=== PATIENT | female | born 1995 | race Caucasian/White ===

== ENCOUNTER → 2016-09-28 | Outpatient (CLI) | payer OTHER ==
--- NOTE | 2016-09-28 14:49 | RADIOLOGY REPORT PS360 ---
KNEE-3 VIEWS-RT INDICATION: Anterior knee pain recent fall 09/12/2016 twisted knee again injured on 09/26/2016. TECHNIQUE: 3 views right knee COMPARISON: None available FINDINGS: No fracture nor dislocation apparent. Visualized joint space well maintained. Normal mineralization. No obvious radio opaque foreign bodies. Unremarkable soft tissues. IMPRESSION: Right knee intact. No fracture nor joint effusion.
== END ==
LOC: RAD 12:51
DX: M25.561 Pain in right knee (principal)